=== PATIENT | female | born 1975 | race Hispanic/Latino ===

== ENCOUNTER 2020-07-24 10:52 | Emergency (ER) | payer OTHER ==
[~2020-07-24] VITALS: Ht 154.9 cm; Wt 58.1 kg
[2020-07-24] MEDS ORDERED: DIPHENHYDRAMINE HCL 25 MG CAP PO ONE (12:00)
[2020-07-24] MEDS ORDERED: PREDNISONE 20 MG TAB PO ONE (12:00)
[2020-07-24] MEDS ORDERED: BENADRYL25 M1 PO (12:23)
[2020-07-24] MEDS ORDERED: PREDNISONE20 MG PO (12:23)
[2020-07-24] MEDS ORDERED: PEPCID20 MG PO (12:23)
[2020-07-24] MEDS ORDERED: FAMOTIDINE 20 MG TAB ONE (12:59)
[2020-07-24] MEDS ORDERED: FAMOTIDINE 20 MG TAB PO ONE (13:00)
[2020-07-25] MEDS ORDERED: ELIMITE60 GM TOP (16:05)
== END 2020-07-24 13:21 | disposition home or self-care (01) ==
LOC: FSED 11:10
DX: R21 Rash and other nonspecific skin eruption (principal); T78.1XXA Other adverse food reactions, not elsewhere classified, initial encounter
CPT/HCPCS: 99283; J7512

== ENCOUNTER 2020-07-25 15:26 | Emergency (ER) | payer OTHER ==
[~2020-07-25] VITALS: Ht 154.9 cm; Wt 58.1 kg
[~2020-07-25 15:26] MED LIST: BENADRYL25 M1 PO; PEPCID20 MG PO; PREDNISONE20 MG PO
[2020-07-25] MEDS ORDERED: ELIMITE60 GM TOP (16:05)
== END 2020-07-25 16:16 | disposition home or self-care (01) ==
LOC: FSED 16:09
DX: B86 Scabies (principal)
CPT/HCPCS: 99282